=== PATIENT | male | born 1985 | race Caucasian/White ===

== ENCOUNTER 2023-02-19 02:29 | Emergency (ER) | payer OTHER ==
[~2023-02-19] VITALS: Ht 182.9 cm; Wt 117.9 kg
[2023-02-19 02:47] VITALS: BP 135/77
--- NOTE | 2023-02-19 02:54 | NUR ---
TO BED 5 FOLLOWING TRIAGE AFTER OBTAINING UA
[2023-02-19] MEDS ORDERED: cefTRIAXone 1,000 MG VIAL ONE (03:12)
[2023-02-19 03:13] LABS: APPEARANCE,URINE CLEAR (CLEAR); BILIRUBIN,URINE NEGATIVE (NEGATIVE); BLOOD, URINE NEGATIVE (NEGATIVE); COLOR,URINE ORANGE (YELLOW); LEUKOCYTE ESTERASE ,URINE TRACE (NEGATIVE); NITRITE, URINE POSITIVE (NEGATIVE); UGLUCOSE 1+ (NEGATIVE)
--- NOTE | 2023-02-19 03:15 | NUR ---
37 YO/M PRESENTS TO ED W C/O BURNING URINATION 4/10, FREQUNCY, AND DIFFICULTY URINATING X3 MONTHS. DENIES FEVERS, CHILLLS, N/V/D, OR ABDOMINAL PAIN, OR ABDNORMAL DISCHARGE. PMH: FREQUENT UTIs, HYPOSPADIOUS, ASTHMA ALLERGIES: DENIES
[2023-02-19 03:37] LABS: RBC,URINE 0-5 /HPF (0-5); WBC,URINE 0-5 /HPF (0-5)
[2023-02-19] MEDS ORDERED: CEPH-588 PO (03:52)
[2023-02-19 04:00] VITALS: BP 135/77
== END 2023-02-19 04:00 | disposition home or self-care (01) ==
LOC: MED 02:29
DX: N39.0 Urinary tract infection, site not specified (principal); Z79.899 Other long term (current) drug therapy
CPT/HCPCS: 81001; 87086; 96365; 99284; J0696